=== PATIENT | female | born 1955 | race Caucasian/White ===

== ENCOUNTER 2018-08-30 21:57 | Inpatient (IN) | payer MEDICARE, MEDICAID ==
[~2018-08-30] VITALS: Ht 170.2 cm; Wt 69.9 kg
--- NOTE | 2018-08-30 22:18 | ED Syncope ---
General Chief Complaint: Trauma-Non Activation Stated Complaint: RT HIP PAIN Source of Information: Patient, EMS Exam Limitations: No Limitations History of Present Illness Date Seen by Provider: Aug 30, 2018 Time Seen by Provider: 21:56 Initial Comments Patient presents to ER by EMS from the [facility] where she says she was getting some soda out of the machine and the last thing she remembers until people were standing over her. Apparently according to bystanders she fell backwards striking her head against the machine behind her. She's not having any nausea fevers chills cough shortness of breath or malaise lately. She does not have a history of syncope. No chest pain or abdominal pain. No nausea or vomiting. She is having pain, deformity and outward rotation in her right hip. No history of surgery or fracture to her hip. Allergies and Home Medications Allergies Coded Allergies: erythromycin base (Verified Allergy, Unknown, 08/30/18) hydrocodone (Verified Allergy, Unknown, 08/30/18) Patient Home Medication List Home Medication List Reviewed: Yes Review of Systems Constitutional: No chills, No diaphoresis EENTM: No ear discharge, No hearing loss, No ear pain Respiratory: No cough, No short of breath Cardiovascular: No chest pain, No edema Gastrointestinal: No abdominal pain, No constipation, No diarrhea Genitourinary: No discharge, No dysuria Musculoskeletal: No back pain, No joint pain Skin: No pruritus, No rash Past Gnzdhqe-Msdtyp-Hlbwvy Hx Patient Social History Alcohol Use: Denies Use Recreational Drug Use: No Smoking Status: Current Everyday Smoker Recent Foreign Travel: No Contact w/Someone Who Travel: No Recent Hopitalizations: No Seasonal Allergies Seasonal Allergies: No Past Medical History Surgeries: Yes Hysterectomy Respiratory: No Cardiac: No Neurological: No 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 oz. kg; BMI Method: General Appearance: WD/WN, Moderate Distress HEENT: PERRL/EOMI, TMs Normal, Normal ENT Inspection, Pharynx Normal, Moist Mucous Membranes Neck: Full Range of Motion, Normal Inspection Cardiovascular: Regular Rate, Rhythm, No Edema, Normal Peripheral Pulses Respiratory: Chest Non Tender, Lungs Clear, No Accessory Muscle Use, No Respiratory Distress Gastrointestinal: Normal Bowel Sounds, Non Tender, Soft Extremities: Normal Capillary Refill, No Pedal Edema, Other (right leg externally rotated painful to palpation around the right hip. Good distal pulses and sensation.) Neurologic/Psychiatric: Alert, Oriented x3, No Motor/Sensory Deficits, Normal Mood/Affect, drawing in hand II-XII Norm as Tested Cranial Nerves: Normal Hearing, Normal Speech, PERRL Coordination/Gait: Normal Finger to Nose Motor/Sensory: No Motor Deficit, No Sensory Deficit Skin: Normal Color, Warm/Dry Progress/Results/Core Measures Results/Orders Lab Results Laboratory Tests Test 08/30/18 22:00 08/30/18 22:27 08/30/18 23:40 Range/Units White Blood Count 9.4 4.3-11.0 10^3/uL Red Blood Count 4.18 L 4.35-5.85 10^6/uL Hemoglobin 12.9 11.5-16.0 G/DL Hematocrit 39 35-52 % Mean Corpuscular Volume 92 80-99 FL Mean Corpuscular Hemoglobin 31 25-34 PG Mean Corpuscular Hemoglobin Concent 33 32-36 G/DL Red Cell Distribution Width 13.4 10.0-14.5 % Platelet Count 258 130-400 10^3/uL Mean Platelet Volume 10.4 7.4-10.4 FL Neutrophils (%) (Auto) 35 L 42-75 % Lymphocytes (%) (Auto) 56 H 12-44 % Monocytes (%) (Auto) 8 0-12 % Eosinophils (%) (Auto) 1 0-10 % Basophils (%) (Auto) 0 0-10 % Neutrophils # (Auto) 3.3 1.8-7.8 X 10^3 Lymphocytes # (Auto) 5.2 H 1.0-4.0 X 10^3 Monocytes # (Auto) 0.8 0.0-1.0 X 10^3 Eosinophils # (Auto) 0.1 0.0-0.3 10^3/uL Basophils # (Auto) 0.0 0.0-0.1 10^3/uL Erythrocyte Sedimentation Rate 19 0-30 MM/HR B-Type Natriuretic Peptide 11.8 <100.0 PG/ML Sodium Level 142 135-145 MMOL/L Potassium Level 3.4 L 3.6-5.0 MMOL/L Chloride Level 104 98-107 MMOL/L Carbon Dioxide Level 28 21-32 MMOL/L Anion Gap 10 5-14 MMOL/L Blood Urea Nitrogen 10 7-18 MG/DL Creatinine 0.76 0.60-1.30 MG/DL Estimat Glomerular Filtration Rate > 60 BUN/Creatinine Ratio 13 Glucose Level 115 H 70-105 MG/DL Calcium Level 8.8 8.5-10.1 MG/DL Corrected Calcium 9.0 8.5-10.1 MG/DL Total Bilirubin 0.3 0.1-1.0 MG/DL Aspartate Amino Transf (AST/SGOT) 17 5-34 U/L Alanine Aminotransferase (ALT/SGPT) 10 0-55 U/L Alkaline Phosphatase 68 40-136 U/L Ammonia 19 11-32 UMOL/L Troponin I < 0.028 <0.028 NG/ML C-Reactive Protein High Sensitivity 0.95 H 0.00-0.50 MG/DL Total Protein 6.2 L 6.4-8.2 GM/DL Albumin 3.7 3.2-4.5 GM/DL Serum Alcohol < 10 <10 MG/DL Blood Gas Puncture Site RIGHT RADIAL Blood Gas Patient Temperature 96.0 Arterial Blood pH 7.38 7.37-7.43 Arterial Blood Partial Pressure CO2 48 H 35-45 MMHG Arterial Blood Partial Pressure O2 73 L 79-93 MMHG Arterial Blood HCO3 28 H 23-27 MMOL/L Arterial Blood Total CO2 29.9 21.0-31.0 MMOL/L Arterial Blood Oxygen Saturation 97 94-100 % Arterial Blood Base Excess 3.4 H -2.5-2.5 MMOL/L Jamari Test YES-POS Blood Gas Ventilator Setting NO Blood Gas Inspired Oxygen 3L Micro Results Microbiology 08/30/18 Influenza Types A,B Antigen (MIGNON) - Final, Complete My Orders Orders - PAZ MITTAL Ct Head/Cervical Spine Wo (08/30/18 22:19) Alcohol (08/30/18 22:19) Ammonia (08/30/18 22:19) Arterial Blood Gas (08/30/18 22:19) BNP (08/30/18 22:19) Cbc With Automated Diff (08/30/18 22:19) Comprehensive Metabolic Panel (08/30/18 22:19) Hs C Reactive Protein (08/30/18 22:19) Erythrocyte Sedimentation Rate (08/30/18 22:19) Drug Screen Stat (Urine) (08/30/18 22:19) Troponin I (08/30/18 22:19) Ua Culture If Indicated (08/30/18 22:19) Influenza A And B Antigens (08/30/18 22:19) Chest 1 View, Ap/Pa Only (08/30/18 22:19) Hip, Right, 2 Views (08/30/18 22:19) Saline Lock/Iv-Start (08/30/18 22:19) Ekg Tracing (08/30/18 22:19) Continuous Ekg Monitoring (08/30/18 22:19) Ketorolac Injection (Toradol Injection) (08/30/18 23:15) Arterial Blood Draw (08/30/18 23:40) Catheter(Urinary) Insert & Ass 03,15 (08/31/18 00:05) Lactated Ringers (Lr 1000 Ml Iv Solution (08/31/18 00:45) Medications Given in ED Current Medications Medications Dose Ordered Sig/Kuldeep Route Start Time Stop Time Status Last Admin Dose Admin Ketorolac Tromethamine 30 mg ONCE ONCE IVP 08/30/18 23:15 08/30/18 23:16 DC 08/30/18 23:15 30 MG Vital Signs/I&O 08/30/18 21:58 Temp 96.0 Pulse 94 Resp 19 B/P (MAP) 122/71 (88) O2 Delivery Nasal Cannula O2 Flow Rate 2.00 08/31/18 00:00 Intake Total 200 ml Balance 200 ml Progress Progress Note : Time: 00:[address] of the head and neck unremarkable. Chest unremarkable. Right hip has a fracture at the neck. Toradol for her pain initially. Looking for source of her syncope. EKG labs urinalysis, Suazo catheter. EMS reports that initially her oxygenation was normal but became so they gave her 50 g of fentanyl her oxygen saturation slipped down to 88% and she acted more somnolent. We put her on oxygen. She does admit to having history of COPD. Initial ECG Impression Date: Aug 31, 2018 Initial ECG Impression Time: 22:12 Initial ECG Rate: 80 Initial ECG Rhythm: Normal Sinus Initial ECG Intervals: Normal Initial ECG Impression: Normal Initial ECG Comparisson: No Previous ECG Available Comment No acute ST elevation or depression. No dysrhythmia. Diagnostic Imaging Diagonstic Imaging: Xray Plain Films/CT/US/NM/MRI: chest Comments No acute processes on one view chest x-ray. Reviewed: Reviewed by Me Diagonstic Imaging: Xray Plain Films/CT/US/NM/MRI: hip (right) Comments Right femoral neck fracture with moderate angulation. Closed. Reviewed: Reviewed by Me Diagonstic Imaging: CT (noncontrast) Plain Films/CT/US/NM/MRI: c-spine, head Comments No acute fractures of the cervical spine. No intracranial mass effect, hemorrhage, tumor, midline shift. Reviewed: Reviewed by Me Departure Communication (Admissions) Time/Spoke to Admitting Phy: 00:58 Dr. Roach discussed case lab imaging findings and she agrees to admit the patient. Discussed the single episode and at the urinalysis is still pending. Time/Spoke to Consulting Phy: 00:58 [place]: Discussed case lab imaging findings and he agrees to do surgery second on in the morning. Impression Primary Impression: Syncopal episodes Qualified Codes: R55 - Syncope and collapse Additional Impression: Closed right hip fracture Qualified Codes: S72.001A - Fracture of unspecified part of neck of right femur, initial encounter for closed fracture Disposition: ADMITTED INPATIENT Condition: Stable Admissions Decision to Admit Reason: Admit from ER (General) Decision to Admit/Date: Aug 31, 2018 Time/Decision to Admit Time: 00:52 Departure-Patient Inst. Referrals: NO,LOCAL PHYSICIAN (PCP) Primary Care Physician PAZ MITTAL Aug 30, 2018 22:18
[2018-08-30 22:28] LABS: BASOPHILS % (AUTO) 0 % (0-10); EOSINOPHILS # (AUTO) 0.1 10^3/uL (0.0-0.3); EOSINOPHILS % (AUTO) 1 % (0-10); HEMATOCRIT 39 % (35-52); HEMOGLOBIN 12.9 G/DL (11.5-16.0); LYMPHOCYTES # (AUTO) 5.2 X 10^3 (1.0-4.0); LYMPHOCYTES % (AUTO) 56 % (12-44); MEAN CORPUSCULAR HEMOGLOBIN 31 PG (25-34); MEAN CORPUSCULAR HGB CONC 33 G/DL (32-36); MEAN CORPUSCULAR VOLUME 92 FL (80-99); MEAN PLATELET VOLUME 10.4 FL (7.4-10.4); MONOCYTES # (AUTO) 0.8 X 10^3 (0.0-1.0); MONOCYTES % (AUTO) 8 % (0-12); NEUTROPHILS # (AUTO) 3.3 X 10^3 (1.8-7.8); NEUTROPHILS % (AUTO) 35 % (42-75); PLATELET COUNT 258 10^3/uL (130-400); RED CELL DISTRIBUTION WIDTH 13.4 % (10.0-14.5); WHITE BLOOD COUNT 9.4 10^3/uL (4.3-11.0)
[2018-08-30 22:51] LABS: ERYTHROCYTE SEDIMENTATION RATE 19 MM/HR (0-30)
[2018-08-30 22:57] LABS: ALANINE AMINOTRANSFERASE 10 U/L (0-55); ALBUMIN 3.7 GM/DL (3.2-4.5); ALKALINE PHOSPHATASE 68 U/L (40-136); AMMONIA 19 UMOL/L (11-32); BILIRUBIN,TOTAL 0.3 MG/DL (0.1-1.0); BUN/CREATININE RATIO 13; CALCIUM 8.8 MG/DL (8.5-10.1); CARBON DIOXIDE 28 MMOL/L (21-32); CHLORIDE 104 MMOL/L (98-107); CREATININE SERUM 0.76 MG/DL (0.60-1.30); GFR ESTIMATED > 60; GLUCOSE 115 MG/DL (70-105); POTASSIUM 3.4 MMOL/L (3.6-5.0); SODIUM 142 MMOL/L (135-145); TOTAL PROTEIN 6.2 GM/DL (6.4-8.2)
[2018-08-30] MEDS ORDERED: KETOROLAC 30 MG/ML VIAL IVP ONE (23:15)
[2018-08-30 23:56] LABS: ABG BASE EXCESS 3.4 MMOL/L (-2.5-2.5); ABG OXYGEN SATURATION 97 % (94-100); ABG PCO2 48 MMHG (35-45); ABG PH 7.38 (7.37-7.43); ABG PO2 73 MMHG (79-93); ABG TCO2 29.9 MMOL/L (21.0-31.0)
[2018-08-30 23:58] LABS: ALLENS TEST YES-POS; INSPIRED O2 3L; VENTILATOR NO
[2018-08-31] VITALS (7 sets, daily range): BP systolic 109–190; BP diastolic 53–86
[2018-08-31] MEDS: LACTATED RINGERS 1,000 ML IV SCH ×3 (01:00→13:30)
[2018-08-31] MEDS ORDERED: fentaNYL INJECTION 100 MCG/2 ML AMP ONE ×3 (01:01→11:43)
[2018-08-31] MEDS ORDERED: fentaNYL INJECTION 100 MCG/2 ML AMP IVP ONE (01:15)
[2018-08-31 01:36] LABS: BILIRUBIN,URINE NEGATIVE (NEGATIVE); CLARITY,URINE SLIGHTLY CLOUDY; COLOR,URINE YELLOW; GLUCOSE, URINE (UA) NEGATIVE (NEGATIVE); KETONES,URINE 1+ (NEGATIVE); LEUKOCYTE ESTERASE ,URINE NEGATIVE (NEGATIVE); NITRITE,URINE NEGATIVE (NEGATIVE); PH,URINE 8 (5-9); PROTEIN,URINE 1+ (NEGATIVE); UROBILINOGEN,URINE NORMAL (NORMAL)
[2018-08-31 01:43] LABS: BACTERIA,URINE TRACE /HPF
[2018-08-31 01:52] LABS: AMPHETAMINE SCREEN, URINE NEGATIVE (NEGATIVE); BARBITURATE SCREEN URINE NEGATIVE (NEGATIVE); BENZODIAZEPINES SCREEN URINE POSITIVE (NEGATIVE); CANNABINOID SCREEN, URINE NEGATIVE (NEGATIVE); COCAINE SCREEN URINE NEGATIVE (NEGATIVE); METHADONE STAT NEGATIVE (NEGATIVE); METHAMPHETAMINE SCREEN URINE S NEGATIVE (NEGATIVE); OPIATE SCREEN URINE NEGATIVE (NEGATIVE); OXYCODONE STAT NEGATIVE (NEGATIVE); PROPOXYPHENE STAT NEGATIVE (NEGATIVE); TRICYCLIC ANTIDEPRESSANTS SCRE NEGATIVE (NEGATIVE)
[2018-08-31] MEDS ORDERED: NS W/KCL 20 MEQ/L 1,000 ML IV SCH (05:30)
[2018-08-31] MEDS ORDERED: ONDANSETRON 4 MG/2 ML (SDV) Z0FRAN IV PRN ×2 (05:30→11:15)
[2018-08-31] MEDS ORDERED: fentaNYL INJECTION 100 MCG/2 ML AMP IV PRN (05:30)
[2018-08-31] MEDS: fentaNYL INJECTION 100 MCG/2 ML AMP IV PRN ×2 (05:56→08:40)
[2018-08-31] MEDS ORDERED: RT-ALBUTEROL/IPRATROPIUM 3 ML (DUONEB) VIAL INH PRN (06:00)
--- NOTE | 2018-08-31 06:35 | Diagnostic Imaging Report ---
INDICATION: Fall hip injury COMPARISON: None. FINDINGS: 2 views of the chest demonstrates likely benign granuloma in the left midlung. Right lung is clear. There is no pneumothorax or effusion. Heart is normal. Visualized osseous structures normal. IMPRESSION: Suspect benign granuloma left lung base. Consider CT chest for further evaluation. Otherwise, no acute cardiopulmonary findings. Dictated by: Dictated on workstation # [id number]
--- NOTE | 2018-08-31 06:36 | Diagnostic Imaging Report ---
INDICATION: Fall hip injury COMPARISON: None. FINDINGS: 2 views right hip demonstrate angulated slightly displaced right femoral neck fracture. There is no dislocation. The visualized pelvis is intact. IMPRESSION: Right femoral neck fracture. Dictated by: Dictated on workstation # [id number]
--- NOTE | 2018-08-31 06:44 | Diagnostic Imaging Report ---
PROCEDURE: CT head and CT cervical spine without contrast. TECHNIQUE: Multiple contiguous axial images were obtained through the brain and cervical spine without the use of intravenous contrast. Sagittal and coronal reformations through the cervical spine were then performed. INDICATION: Fall head and neck pain. COMPARISON: None. FINDINGS: CT HEAD: Ventricles normal in size, shape and position. There is no midline shift or mass effect. There is no hemorrhage or evidence of acute ischemia. No intra-axial fluid collection is seen. Paranasal sinuses and mastoids are clear. Bony calvarium normal. IMPRESSION: No acute intracranial abnormalities. CT CERVICAL SPINE: Alignment is normal. There was no subluxation or fracture. Mild degenerative changes are present throughout. There is no osseous lesion. There are carotid calcifications bilaterally. IMPRESSION: No traumatic malalignment or fracture. Agree with the preliminary report. Dictated by: Dictated on workstation # [id number]
[2018-08-31 06:46] LABS: BASOPHILS % (AUTO) 0 % (0-10); EOSINOPHILS % (AUTO) 1 % (0-10); HEMATOCRIT 39 % (35-52); HEMOGLOBIN 12.7 G/DL (11.5-16.0); LYMPHOCYTES # (AUTO) 2.6 X 10^3 (1.0-4.0); LYMPHOCYTES % (AUTO) 31 % (12-44); MEAN CORPUSCULAR HEMOGLOBIN 31 PG (25-34); MEAN CORPUSCULAR HGB CONC 33 G/DL (32-36); MEAN CORPUSCULAR VOLUME 93 FL (80-99); MEAN PLATELET VOLUME 10.2 FL (7.4-10.4); MONOCYTES # (AUTO) 0.7 X 10^3 (0.0-1.0); MONOCYTES % (AUTO) 8 % (0-12); NEUTROPHILS % (AUTO) 60 % (42-75); PLATELET COUNT 237 10^3/uL (130-400); RED CELL DISTRIBUTION WIDTH 13.4 % (10.0-14.5); WHITE BLOOD COUNT 8.3 10^3/uL (4.3-11.0)
[2018-08-31 07:13] LABS: BUN/CREATININE RATIO 19; CALCIUM 9.4 MG/DL (8.5-10.1); CARBON DIOXIDE 26 MMOL/L (21-32); CHLORIDE 106 MMOL/L (98-107); GFR ESTIMATED > 60; GLUCOSE 107 MG/DL (70-105); POTASSIUM 3.8 MMOL/L (3.6-5.0); SODIUM 141 MMOL/L (135-145)
[2018-08-31] MEDS: RT-ALBUTEROL/IPRATROPIUM 3 ML (DUONEB) VIAL INH SCH ×3 (08:18→19:34)
--- NOTE | 2018-08-31 08:20 | Consultation ---
History of Present Illness History of Present Illness Patient Consulted On(peace/time) 08/31/18 08:15 Date Seen by Provider: Aug 31, 2018 Time Seen by Provider: 08:01 Reason for Visit: Fall, hip pain History of Present Illness 62 y/o [place], falling on right hip. Denies any other pain or complaints. Past history related. Awake, alert, daughters present this am for some of history. Allergies and Home Medications Allergies Coded Allergies: erythromycin base (Verified Allergy, Unknown, 08/30/18) hydrocodone (Verified Allergy, Unknown, 08/30/18) Patient Home Medication List Home Medication List Reviewed: No Past Gfyupwo-Wnhhrd-Saqfjd Hx Patient Social History Alcohol Use: Denies Use Recreational Drug Use: No Smoking Status: Current Everyday Smoker Recent Foreign Travel: No Contact w/Someone Who Travel: No Recent Infectious Disease Expo: No Recent Hopitalizations: No Immunizations Up To Date Date of Pneumonia Vaccine: Apr 07, 2018 Date of Influenza Vaccine: Apr 07, 2018 Seasonal Allergies Seasonal Allergies: Yes Past Medical History Surgeries: Yes Hysterectomy Respiratory: No COPD Currently Using CPAP: No Currently Using BIPAP: No Neurological: No Female Reproductive Disorders: Ovarian Cyst 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 Gastrointestinal: Yes Gastroesophageal Reflux Musculoskeletal: No Arthritis, Scoliosis Endocrine: Yes Hypothyroidsim HEENT: No Cancer: No Psychosocial: Yes Sleep Difficulties, Anxiety Integumentary: No Blood Disorders: No Adverse Reaction/Blood Tranf: No Review of Systems-General Constitutional: weakness EENTM: see HPI Respiratory: wheezing, other (history of COPD) Cardiovascular: no symptoms reported Gastrointestinal: no symptoms reported Genitourinary: no symptoms reported Musculoskeletal: joint pain Skin: no symptoms reported Psychiatric/Neurological: No Symptoms Reported Physical Exam-General Problems Physical Exam Vital Signs Vital Signs - First Documented 08/30/18 08/31/18 08/31/18 21:58 01:50 04:27 Temp 96.0 Pulse 94 Resp 19 B/P (MAP) 122/71 (88) Pulse Ox 92 O2 Delivery Nasal Cannula O2 Flow Rate 2.00 FiO2 28 Capillary Refill : Less Than 3 SecondsLess Than 3 Seconds General Appearance: no apparent distress Eyes: Bilateral Eye Normal Inspection HEENT: PERRL/EOMI, normal ENT inspection Neck: non-tender, full range of motion, supple, normal inspection Respiratory: chest non-tender, no respiratory distress, no accessory muscle use Cardiovascular: normal peripheral pulses, regular rate, rhythm Gastrointestinal: non tender, soft Rectal: deferred Back: no vertebral tenderness Extremities: other (right leg, shortened and externally rotated. Pain with ROM. Bilateral upper extremities and left lower show no pain, swelling or deformity.) Neurologic/Psychiatric: brewmaster II-XII nml as tested, no motor/sensory deficits, alert, normal mood/affect, oriented x 3 Skin: normal color, warm/dry Lymphatic: no adenopathy Comments Displaced right femoral neck fracture. CT neck, shows DDD, no fx Assessment/Plan Assessment/Plan Admission Diagnosis/Plan Right closed, displaced femoral neck fracture. Plan: Needs right hip william-arthroplasty. Risk, benefits, alternatives discussed with family/patient. Admission Status: Inpatient Order (span 2 midnights) Reason for Inpatient Admission: Femoral neck fracture Clinical Quality Measures DVT/VTE Risk/Contraindication: Risk Factor Score Per Nursin RFS Level Per Nursing on Admit: 4+=Very High HARPREET FORREST MD Aug 31, 2018 08:20
[2018-08-31] MEDS ORDERED: ALPRAZolam 0.5 MG (XANAX) TAB PO PRN (09:15)
--- NOTE | 2018-08-31 09:24 | History & Physical-Hospitalist ---
History of Present Illness HPI/Chief Complaint This is a 62-year-old white female who was at the [facility] last evening with her . He had had a sonic burger earlier in the evening but then thinks perhaps her blood sugar dropped low. She got up to go get some drinks and then passed out falling on her right hip. She has sustained a right femoral neck fracture. Source: patient, family Exam Limitations: no limitations Date Seen 08/31/18 Time Seen by a Provider: 09:00 Attending Physician Shona Sorenson MD PCP No,Local Physician Referring Physician Date of Admission Aug 31, 2018 at 01:00 Home Medications & Allergies Home Medications Reviewed patient Home Medication Reconciliation performed by pharmacy medication reconciliations animal health technician and/or nursing. Patients Allergies have been reviewed. Allergies Allergies Coded Allergies erythromycin base (Verified Allergy, Unknown, 08/30/18) hydrocodone (Verified Allergy, Unknown, 08/30/18) Past Szcblhm-Jflxjx-Ynoshl Hx Past Med/Social Hx: Reviewed Nursing Past Med/Soc Hx Patient Social History Marrital Status: Employed/Student: retired Alcohol Use: Denies Use Recreational Drug Use: No Smoking Status: Current Everyday Smoker Physical Abuse Screen: No Sexual Abuse: No Recent Foreign Travel: No Contact w/other who traveled: No Recent Hopitalizations: No Recent Infectious Disease Expo: No Immunizations Up To Date Date of Pneumonia Vaccine: Apr 07, 2018 Date of Influenza Vaccine: Apr 07, 2018 Seasonal Allergies Seasonal Allergies: Yes Past Medical History Surgeries: Hysterectomy (Secondary to sepsis), Tonsillectomy Recent upper respiratory tract infection just getting off antibiotics Currently Using CPAP: No Currently Using BIPAP: No : No Female Reproductive Disorders: Ovarian Cyst Hysterectomy Gastrointestinal: Gastroesophageal Reflux Musculoskeletal: Arthritis, Scoliosis Endocrine: Hypothyroidsim Psychosocial: Sleep Difficulties, Anxiety History of Blood Disorders: No Adverse Reaction to Blood Ibrahim: No Review of Systems Constitutional: see HPI EENTM: other (E dentulous) Respiratory: cough Cardiovascular: no symptoms reported Gastrointestinal: no symptoms reported Genitourinary: no symptoms reported Musculoskeletal: joint pain (Right hip) Skin: no symptoms reported Psychiatric/Neurological: Other (And somnolent) Physical Exam Physical Exam Vital Signs Vital Signs - First Documented 08/30/18 08/31/18 08/31/18 21:58 01:50 04:27 Temp 96.0 Pulse 94 Resp 19 B/P (MAP) 122/71 (88) Pulse Ox 92 O2 Delivery Nasal Cannula O2 Flow Rate 2.00 FiO2 28 Capillary Refill : Less Than 3 SecondsLess Than 3 Seconds Height, Weight, BMI Height: 5'7.00" Weight: 154lbs. 2.0oz. 69.513291is; 24.1 BMI Method:Stated General Appearance: No Apparent Distress, WD/WN HEENT: PERRL/EOMI, Other (Edentulous) Neck: Full Range of Motion, Non Tender, Supple Respiratory: No Accessory Muscle Use, Rales, Wheezing Cardiovascular: Regular Rate, Rhythm, No Gallop, No Murmur Gastrointestinal: Normal Bowel Sounds, Non Tender, Soft Extremity: Other (Right leg shortened and externally rotated with good pulses) Neurologic/Psychiatric: Alert, Oriented x3, Normal Mood/Affect Results Results/Procedures Labs Laboratory Tests 08/30/18 22:00 08/30/18 22:27 08/31/18 06:05 Patient resulted labs reviewed. Imaging: Reviewed Imaging Report Assessment/Plan Admission Diagnosis Right femoral neck fracture Hypothyroidism Tobaccoism with probable COPD Syncope we will place on telemetry possibly hypoglycemia granuloma left lung base possibly warranting a follow-up as an outpatient Insomnia takes an exit bedtime to help her sleep Admission Status: Inpatient Order (span 2 midnights) Reason for Inpatient Admission: For surgery and respiratory treatments Diagnosis/Problems Diagnosis/Problems (1) Closed right hip fracture Status: Acute Qualifiers: Encounter type: initial encounter Qualified Codes: S72.001A - Fracture of unspecified part of neck of right femur, initial encounter for closed fracture (2) Syncopal episodes Status: Acute Qualifiers: Syncope type: unspecified Qualified Codes: R55 - Syncope and collapse (3) Hypothyroid Status: Chronic (4) Insomnia Status: Chronic (5) Bronchitis due to tobacco use Status: Acute Clinical Quality Measures DVT/VTE Risk/Contraindication: Risk Factor Score Per Nursin RFS Level Per Nursing on Admit: 4+=Very High SHONA SORENSON MD Aug 31, 2018 09:24
[2018-08-31] MEDS ORDERED: ROCURONIUM 10 MG/ML 5 ML SYRINGE IV ONE (10:29)
[2018-08-31] MEDS ORDERED: proPOfol 200 MG/20 ML (DIPRIVAN) VIAL IV ONE (10:29)
[2018-08-31] MEDS ORDERED: LIDOCAINE PF 2% 5 ML (XYLOCAINE) VIAL ONE (10:29)
[2018-08-31] MEDS ORDERED: ONDANSETRON 4 MG/2 ML (SDV) Z0FRAN ONE (10:29)
[2018-08-31] MEDS ORDERED: MIDAZOLAM 2 MG/2 ML (VERSED) VIAL ONE (10:29)
--- NOTE | 2018-08-31 10:30 | NUR ---
TAKEN DOWN FOR SURGERY BY PREOP
[2018-08-31] MEDS ORDERED: SEVOFLURANE (ULTANE) 15 ML INHAL SOLN ONE ×6 (10:31→12:10)
[2018-08-31] MEDS ORDERED: oxyCODONE/APAP 5/325MG (PERCOCET 5) TABLET PO PRN (11:15)
[2018-08-31] MEDS ORDERED: MILK OF MAGNESIA 400 MG/5 ML 30 ML UDC PO PRN (11:15)
[2018-08-31] MEDS ORDERED: BISACODYL 5 MG (DULCOLAX) TABLET PO PRN (11:15)
[2018-08-31] MEDS ORDERED: ceFAZolin INJECTION 2,000 MG ONE (11:15)
--- NOTE | 2018-08-31 12:29 | Progress Note-Post Operative ---
Post-Operative Progess Note Surgeon (s)/Coffee Shop Attendant (s) Surgeon HARPREET FORREST MD Coffee Shop Attendant: FRANSISCO Pate Pre-Operative Diagnosis Right closed femoral neck fracture Post-Operative Diagnosis same Procedure & Operative Findings Date of Procedure 08/31/18 Procedure Performed/Findings Right Hip Rajat-arthroplasty Anesthesia Type GETA Estimated Blood Loss Estimated blood loss (mL): 150 Specimens/Packing Specimens Removed femoral head HARPREET FORREST MD Aug 31, 2018 12:29
[2018-08-31] MEDS: morphine INJ 4 MG/ML 1 ML (VIAL/SYRINGE) IV PRN ×2 (12:43→12:56)
[2018-08-31] MEDS ORDERED: HYDROmorphone 2 MG/ML VIAL (DILAUDID) ONE (12:46)
[2018-08-31] MEDS ORDERED: morphine INJ 10 MG/ML 1ML (SYR OR VIAL) IVP ONE (13:00)
[2018-08-31] MEDS ORDERED: MEPERIDINE (DEMEROL) INJ 50 MG/ML IVP ONE (13:00)
[2018-08-31] MEDS ORDERED: ONDANSETRON 4 MG/2 ML (SDV) Z0FRAN IVP PRN (13:00)
[2018-08-31] MEDS ORDERED: PROMETHAZINE INJ 25 MG/ML (PHENERGAN) AMP IVP ONE (13:00)
[2018-08-31] MEDS ORDERED: HYDROmorphone 2 MG/ML VIAL (DILAUDID) IV ONE (13:00)
--- NOTE | 2018-08-31 13:40 | NUR ---
BACK TO FLOOR PER BED WITH AREA CLEANER -- REPOR GIVEN TO THIS RN -- NOTE THAT R FEET PULSE IS MARKED
--- NOTE | 2018-08-31 13:53 | Diagnostic Imaging Report ---
EXAMINATION: Right hip at 12:57 PM. INDICATION: Postop right hip hemiarthroplasty. FINDINGS: Two views of right hip were obtained. In the interval since the prior exam of 08/30/2018, the patient has undergone a surgical procedure. There is now a total hip prosthesis in place. The prosthetic components seem to be in good position. There is no fracture or acute abnormality identified. There is gas in soft tissues about the hip joint and there are skin bryce lateral to the hip joint. IMPRESSION: Stable postoperative right hip. Dictated by: Dictated on workstation # [id number]
[2018-08-31] MEDS ORDERED: ceFAZolin 2 GM IV Premixed 50 ML IV SCH ×2 (14:00→19:00)
[2018-08-31] MEDS ORDERED: morphine INJ 10 MG/ML 1ML (SYR OR VIAL) ONE (14:06)
--- NOTE | 2018-08-31 14:14 | OPERATIVE REPORT ---
DATE OF SERVICE: PREOPERATIVE DIAGNOSIS: Right closed displaced femoral neck fracture. POSTOPERATIVE DIAGNOSIS: Right closed displaced femoral neck fracture. PROCEDURE PERFORMED: Right hip hemiarthroplasty for fracture. DATE AND TIME OF SURGERY: Please see anesthesia record. IMPLANTS USED: Synthes, DePuy, Tri-Lock size 5 stem, +5 neck length, 28 mm femoral head with a 44 mm bipolar cup. SURGEON: Harpreet Phan MD MECHANICAL DESIGN ENGINEER FACILITIES: Too BRAVO. ROLE OF GOODWILL AMBASSADOR: Aid in retraction of the procedure, aid in implantation of instrumentation and wound closure. ANESTHESIA: General endotracheal. ESTIMATED BLOOD LOSS: 150 mL. INTRAVENOUS FLUIDS: Please see anesthesia record. ANTIBIOTICS: Ancef. COMPLICATIONS: None. INDICATIONS FOR PROCEDURE: The patient is a 62-year-old female, slipped and fell last evening, sustaining a hip fracture. Denies other injuries. After discussion with family, they elected to proceed with operative treatment. DESCRIPTION OF PROCEDURE: The patient was taken to the preoperative holding area, brought back to the operative suite. After adequate induction of general anesthesia, preoperative antibiotics, carefully placed in lateral decubitus position, right side up. Standard anterolateral Weiner-Basurto approach to the hip was carried out without difficulty. Once the femoral neck was delivered from the wound, it was cut shorter utilizing the femoral neck cutting guide. Once it was cut smoothed, a corkscrew was utilized to deliver the femoral head which was measured, measured to be 44. Trial sizers were utilized with great fit achieved with a 44. The femur was then broached. Size 5 stem was the most appropriate fit. It was trialled again and reduced with a great fit achieved, stability and motion of the hip. Therefore, an actual size 5 stem was impacted in position after copious pulse lavage irrigation of the wound and the canal. Once the stem was then placed and impacted in position with good fit, the bipolar head was placed onto the Zarate taper impacted in position and then the head was reduced into the acetabulum. Again, stability and range of motion were assessed and noted to be satisfactory. The wound was closed in multiple layers after again pulse lavage irrigation. Once the wound was closed, the patient was transferred to recovery room in stable condition, tolerated procedure well. Job ID: [id number] DocumentID: [id number] Dictated Date: 08/31/2018 12:28:02 Flag Maker Date: 08/31/2018 14:14:14 Dictated By: HARPREET PHAN MD [facility]
[2018-08-31] MEDS: NS IV 1000 ML 1,000 ML IV SCH ×2 (15:48→23:40)
[2018-08-31] MEDS: SENNOSIDES 8.6 MG (SENOKOT) TAB PO SCH (20:48)
[2018-08-31] MEDS: DOCUSATE SODIUM 100 MG (COLACE) CAP PO SCH (20:48)
[2018-09-01] MEDS: RT-ALBUTEROL/IPRATROPIUM 3 ML (DUONEB) VIAL INH SCH ×4 (02:46→19:07)
[2018-09-01] MEDS: NS IV 1000 ML 1,000 ML IV SCH (03:14)
[2018-09-01] MEDS: oxyCODONE/APAP 7.5-325 MG (PERCOCET 7.5) TABLET PO PRN ×4 (03:14→20:23)
[2018-09-01 03:30] VITALS: BP 107/65
[2018-09-01] MEDS: LEVOTHYROXINE 100 MCG (LEVOTHROID) TAB PO SCH (05:58)
[2018-09-01 06:03] LABS: BASOPHILS % (AUTO) 0 % (0-10); EOSINOPHILS % (AUTO) 0 % (0-10); HEMATOCRIT 30 % (35-52); HEMOGLOBIN 9.7 G/DL (11.5-16.0); LYMPHOCYTES # (AUTO) 1.2 X 10^3 (1.0-4.0); LYMPHOCYTES % (AUTO) 13 % (12-44); MEAN CORPUSCULAR HEMOGLOBIN 30 PG (25-34); MEAN CORPUSCULAR HGB CONC 32 G/DL (32-36); MEAN CORPUSCULAR VOLUME 94 FL (80-99); MONOCYTES % (AUTO) 11 % (0-12); NEUTROPHILS # (AUTO) 7.2 X 10^3 (1.8-7.8); NEUTROPHILS % (AUTO) 77 % (42-75); PLATELET COUNT 211 10^3/uL (130-400); RED CELL DISTRIBUTION WIDTH 13.6 % (10.0-14.5); WHITE BLOOD COUNT 9.4 10^3/uL (4.3-11.0)
[2018-09-01 06:31] LABS: ALANINE AMINOTRANSFERASE 10 U/L (0-55); ALBUMIN 3.3 GM/DL (3.2-4.5); ALKALINE PHOSPHATASE 62 U/L (40-136); BILIRUBIN,TOTAL 0.5 MG/DL (0.1-1.0); BUN/CREATININE RATIO 15; CALCIUM 8.4 MG/DL (8.5-10.1); CARBON DIOXIDE 26 MMOL/L (21-32); CHLORIDE 105 MMOL/L (98-107); GFR ESTIMATED > 60; GLUCOSE 139 MG/DL (70-105); POTASSIUM 3.9 MMOL/L (3.6-5.0); SODIUM 139 MMOL/L (135-145); TOTAL PROTEIN 5.6 GM/DL (6.4-8.2)
--- NOTE | 2018-09-01 07:02 | Progress Note (SOAP) ---
Subjective Date Seen by a Provider: Sep 01, 2018 Time Seen by a Provider: 06:42 Subjective/Events-last exam Pain ok, awake, alert. No concerns. Objective Exam Vital Signs Date Time Temp Pulse Resp B/P (MAP) Pulse Ox O2 Delivery O2 Flow Rate FiO2 09/01/18 03:30 98.2 103 18 107/65 (79) 94 Room Air 2.00 09/01/18 02:46 89 Nasal Cannula 2.00 09/01/18 01:00 83 08/31/18 23:48 100.1 96 16 109/53 (71) 96 Nasal Cannula 2.00 08/31/18 20:00 Nasal Cannula 2.00 08/31/18 19:34 97 Nasal Cannula 3.00 08/31/18 19:30 98.7 89 18 115/58 (77) 97 Nasal Cannula 2.00 08/31/18 19:00 80 08/31/18 15:57 80 08/31/18 15:30 98.0 73 16 110/55 (73) 96 Nasal Cannula 2.00 08/31/18 13:51 Nasal Cannula 3.00 08/31/18 08:20 Nasal Cannula 2.00 08/31/18 08:00 95 Nasal Cannula 2.00 08/31/18 08:00 100.0 104 18 150/70 (96) 95 Nasal Cannula 2.00 I & O 09/01/18 07:00 Intake Total 1970 ml Output Total 1750 ml Balance 220 ml Capillary Refill : Less Than 3 SecondsLess Than 3 Seconds General Appearance: No Apparent Distress Respiratory: No Accessory Muscle Use, No Respiratory Distress Cardiovascular: Regular Rate, Rhythm Gastrointestinal: non tender, soft Extremity: No Calf Tenderness, Swelling Neurologic/Psychiatric: Alert, Oriented x3, No Motor/Sensory Deficits Other comments Post Op Xrays of hip, look quite satisfactory. Results Lab Laboratory Tests 08/31/18 16:32: Glucometer 156H 09/01/18 05:38: Glucometer 151H 09/01/18 05:44: White Blood Count 9.4, Red Blood Count 3.19L, Hemoglobin 9.7#L, Hematocrit 30L, Mean Corpuscular Volume 94, Mean Corpuscular Hemoglobin 30, Mean Corpuscular Hemoglobin Concent 32, Red Cell Distribution Width 13.6, Platelet Count 211, Mean Platelet Volume 10.0, Neutrophils (%) (Auto) 77H, Lymphocytes (%) (Auto) 13 , Monocytes (%) (Auto) 11, Eosinophils (%) (Auto) 0, Basophils (%) (Auto) 0, Neutrophils # (Auto) 7.2, Lymphocytes # (Auto) 1.2, Monocytes # (Auto) 1.0, Eosinophils # (Auto) 0.0, Basophils # (Auto) 0.0, Sodium Level 139, Potassium Level 3.9, Chloride Level 105, Carbon Dioxide Level 26, Anion Gap 8, Blood Urea Nitrogen 9, Creatinine 0.60, Estimat Glomerular Filtration Rate > 60, BUN/ Creatinine Ratio 15, Glucose Level 139H, Calcium Level 8.4L, Corrected Calcium 9.0, Total Bilirubin 0.5, Aspartate Amino Transf (AST/SGOT) 17, Alanine Aminotransferase (ALT/SGPT) 10, Alkaline Phosphatase 62, Total Protein 5.6L, Albumin 3.3, Thyroid Stimulating Hormone (TSH) 0.05L Microbiology 08/30/18 Influenza Types A,B Antigen (MIGNON) - Final, Complete Assessment/Plan Assessment/Plan Assess & Plan/Chief Complaint Right closed, displaced femoral neck fracture. S/P Right Hip Rajat-Arthroplasty Plan: PT, Pain control, work on arrangement to get closer to [place]. Dr Primo Loomis DO has accepted to follow her up as her in [facility] ortho surgeon. Clinical Quality Measures DVT/VTE Risk/Contraindication: Risk Factor Score Per Nursin RFS Level Per Nursing on Admit: 4+=Very High HARPREET FORREST MD Sep 01, 2018 07:02
--- NOTE | 2018-09-01 07:14 | Diagnostic Imaging Report ---
CLINICAL INDICATION: Patient with bilateral rhonchi. EXAM: Portable chest x-ray upright view. COMPARISONS: Chest x-ray dated 08/30/2018. FINDINGS: Lungs/pleura: Stable calcified granuloma overlying the periphery of the left midlung field. There is interval development of mild discoid atelectasis involving the left lung base. Otherwise, lungs are clear. There is no pneumothorax. There is no pleural effusion. Mediastinum: Unremarkable. Pulmonary vasculature: Unremarkable. Heart: Unremarkable. Bones/extrathoracic soft tissue: Unremarkable. IMPRESSION: 1: Interval development of mild left lung base atelectasis. 2: The remainder of this exam shows no significant interval change compared to the prior study of comparison. Dictated by: Dictated on workstation # [id number]
[2018-09-01 08:00] VITALS: BP 112/71
[2018-09-01] MEDS: DOCUSATE SODIUM 100 MG (COLACE) CAP PO SCH ×2 (09:03→20:23)
[2018-09-01] MEDS: SENNOSIDES 8.6 MG (SENOKOT) TAB PO SCH ×2 (09:04→20:21)
[2018-09-01] MEDS: NICOTINE 7 MG (NICODERM) PATCH TD SCH (09:05)
[2018-09-01] MEDS ORDERED: LEVO100T7 PO (09:21)
[2018-09-01] MEDS ORDERED: OMEP40CA36 PO (09:21)
[2018-09-01] MEDS ORDERED: ALPR0.25 PO (09:21)
[2018-09-01] MEDS ORDERED: ASPI-983 PO (09:21)
--- NOTE | 2018-09-01 09:22 | NUR ---
SPOKE WITH THE PATIENT ABOUT HER MEDICATIONS. SHE LISTED WHAT SHE IS TAKING AND I HAD A LIST FAXED OVER FROM [facility]. [facility] FILLED: 08-26-18 LEVAQUIN 500NG DAILY X 5 DAYS (FINISHED) 08-26-18 MEDROL DOSEPAK #21 (STATES SHE DID NOT TAKE DUE TO AFFECTING HER BLOOD SUGAR) 08-11-18 ALPRAZOLAM 0.25MG BID #60 (ONLY TAKES 1 AT HS) 08-11-18 LEVOTHYROXINE 100MCG DAILY #30 08-22-18 OMEPRAZOLE 40MG DAILY #30 (ONLY TAKES PRN) SHE TAKES ASPIRIN 81MG OTC AT HS. SHE ALSO STATES DRWilfredo WAS GOING TO CALL IN 2 INHALERS FOR HER BECAUSE SHE USES HER HUSBANDS RIGHT NOW. [facility] HAS NOT GOTTEN ORDERS FOR INHALERS YET, THE PATIENT WAS UNSURE OF THE NAMES OF THE INHALERS SO I DID NOT INCLUDE THEM ON THE MED REC AT THIS TIME.
--- NOTE | 2018-09-01 10:26 | Physical Therapy Evaluation ---
PT Evaluation-General Medical Diagnosis Admission Date Aug 31, 2018 at 01:00 Medical Diagnosis: right hip fracture Onset Date: Aug 31, 2018 Therapy Diagnosis Therapy Diagnosis: debility/weakness Height/Weight Height (Feet): 5 Height (Inches): 7.00 Weight (Pounds): 154 Weight (Ounces): 2.0 Precautions Precautions/Isolations: Fall Prevention, Standard Precautions Weight Bear Status Right Lower Extremity: Right Full Weight Bearing Left Lower Extremity: Left Full Weight Bearing Referral Physician: Srinivas Reason for Referral: Evaluation/Treatment Medical History Pertinent Medical History: GERD, Hypothroidism, Smoking Current History EMS secondary to fall at [facility] Reviewed History: Yes Social History Home: Single Level Current Living Status: Spouse Prior/Core FIM Prior Level of Function Therapy Code Descriptions/Definitions Functional [place] Measure: 0=Not Assessed/NA 4=Minimal Assistance 1=Total Assistance 5=Supervision or Setup 2=Maximal Assistance 6=Modified [place] 3=Moderate Assistance 7=Complete [place] Therapy Quality Codes: 6 Independent with activity with or without an assistive device 5 Patient requires set up or clean up by helper. Patient completes activity by themselves 4 Supervision or touching assist (CGA). [place] provide cues , steadying assist 3 The helper provides less than half the effort to complete the activity 2 The helper provides more than half the effort to complete the activity 1 Dependent. The helper does all the effort to complete an activity 7 Patient refused to complete or attempt activity 9 The patient did not perform the activity before the current illness or injury 88 Not attempted due to Medical conditions or safety concerns Functional Abilities and Goals: Independent: Patient completed the activities by him/herself, with or without an assistive device, with no assistance from a helper. Needed Some Help: Patient needed partial assistance from another person to complete activities. Dependent: A helper completed the activities for the patient. Unknown: Not Applicable: Bed Mobility: 7 Transfers (B,C,W/C) (FIM): 7 Gait: 7 Stairs: 7 Indoor Mobility (Ambulation): Independent Stairs: Independent Prior Devices Use: None PT Evaluation-Current Subjective Patient is very agreeable to participate with PT. Pain Numeric Pain Scale: 7 Location: Right Location Body Site: Hip Pain Description: Acute Objective Patient Orientation: Normal For Age Problem Solving: Good Attachments: Oxygen, Suazo Catheter ROM/Strength ROM Lower Extremities bilateral LE WFL Strength Lower Extremities left LE 4/5 grossly/ right LE 3/5 grossly Integumentary/Posture Integumentary refer to nursing notes Bladder Incontinence: Suazo Cath Posture WFL Neuromuscular (Tone, Coordination, Reflexes) grossly intact Sensory Vision: Functional Hearing: Functional Sensation Right Lower Extremit: Intact Sensation Left Lower Extremity: Intact Transfers Therapy Code Descriptions/Definitions Functional [place] Measure: 0=Not Assessed/NA 4=Minimal Assistance 1=Total Assistance 5=Supervision or Setup 2=Maximal Assistance 6=Modified [place] 3=Moderate Assistance 7=Complete [place] Transfers (B, C, W/C) (FIM): 4 Scootin Rollin Supine to/from Sit: 4 Sit to/from Stand: 4 Gait Mode of Locomotion: Walk Anticipated Mode of Locomotion: Walk Gait (FIM): 2 Distance (FIM): 7=073-58 ft Distance: 100' Gait Level of Assist: 5 Gait Persons Needed: 1 Gait Assistive Device: FWW Comments/Gait Description slow, steady, antalgic Balance Sitting Static: Normal Sitting Dynamic: Normal Standing Static: Normal Standing Dynamic: Normal Assessment/Needs 62 y.o. female, will benefit from skilled PT to address functional strength and mobility to improve current LOF and to safely return to home at maximum LOF. Rehab Potential: Good PT Brass Cleaner Goals Mcfp Goals PT Brass Cleaner Goals Time Frame: Sep 13, 2018 Transfers (B,C,W/C) (FIM): 6 Gait (FIM): 6 Gait distance (FIM): 3=150 ft Distance: 250' Gait Level of Assist: 6 Gait Assistive Device: FWW Stairs (FIM): 5 # of Steps: 12 Stairs Level Of Assist: 5 PT Plan Problem List Problem List: Gait, Bed Mobility Treatment/Plan Treatment Plan: Continue Plan of Care Treatment Plan: Bed Mobility, Education, Functional Activity Samantha, Functional Strength, Gait, Safety, Therapeutic Exercise, Transfers Treatment Duration: Sep 13, 2018 Frequency: 11 times per week Estimated Hrs Per Day: .5 hour per day Patient and/or Family Agrees t: Yes Discharge Recommendations Therapy D/C Recommendations: Home w/ Family Support, Shelter (TCU/NH) Time/GCodes Time In: 825 Time Out: 838 Total Billed Treatment Time: 13 Total Billed Treatment 1 visit EVModC 13 min ALYCE VALENTIN PT Sep 01, 2018 10:26
--- NOTE | 2018-09-01 10:59 | Anesthesia-General Post-Op ---
General Patient Condition Mental Status/LOC: Same as Preop Cardiovascular: Satisfactory Nausea/Vomiting: Absent Respiratory: Satisfactory Pain: Controlled Complications: Absent Post Op Complications Complications None Follow Up Care/Instructions Patient Instructions None needed. Anesthesia/Patient Condition Patient Condition Patient is doing well, no complaints, stable vital signs, no apparent adverse anesthesia problems. No complications reported per nursing. PAT CARRIZALES CRNA Sep 01, 2018 10:59
--- NOTE | 2018-09-01 11:20 | Progress Note-Hospitalist ---
Subjective HPI/CC On Admission Date Seen by Provider: Sep 01, 2018 Time Seen by Provider: 11:14 This is a 62-year-old white female who was at the [facility] last evening with her . He had had a sonic burger earlier in the evening but then thinks perhaps her blood sugar dropped low. She got up to go get some drinks and then passed out falling on her right hip. She has sustained a right femoral neck fracture. Subjective/Events-last exam Pt reports doing well. Minimal pain. Currently on oxygen. Discussed options for post hospital care and she declined anywhere but rehab at home including ARU and SNF. Objective Exam Vital Signs Vital Signs Date Time Temp Pulse Resp B/P (MAP) Pulse Ox O2 Delivery O2 Flow Rate FiO2 09/01/18 13:02 89 09/01/18 12:00 99.7 18 100/55 (70) 97 Nasal Cannula 1.00 08/31/18 04:27 28 Capillary Refill : Less Than 3 SecondsLess Than 3 Seconds General Appearance: No Apparent Distress HEENT: Other (Edentulous) Respiratory: Lungs Clear, No Accessory Muscle Use, No Respiratory Distress Cardiovascular: Regular Rate, Rhythm, No Murmur Gastrointestinal: Normal Bowel Sounds, Non Tender, Soft Genital/Rectal: Other (benito in place) Extremity: No Calf Tenderness, No Pedal Edema, Swelling Neurologic/Psychiatric: Alert, Oriented x3 Skin: Normal Color, Warm/Dry Results/Procedures Lab Laboratory Tests 09/01/18 05:44 Patient resulted labs reviewed. Imaging: Reviewed Imaging Report Assessment/Plan Assessment and Plan Assess & Plan/Chief Complaint Right femoral neck fracture- POD #1, ortho consulted, appreciate recs- PT/OT consulted Hypothyroidism- Continue home supplement Tobaccoism with probable COPD- not on oxygen at home Granuloma left lung base- will need outpatient follow up Discharge planning- IRU consulted but patient declines any inpatient stay for rehab and only agreeable to returning home with outpatient PT/OT or Home Health through local hospital in [facility] consulted, appreciate recs Clinical Quality Measures DVT/VTE Risk/Contraindication: Risk Factor Score Per Nursin RFS Level Per Nursing on Admit: 4+=Very High DB WISDOM MD Sep 01, 2018 11:20
[2018-09-01 12:00] VITALS: BP 100/55
--- NOTE | 2018-09-01 12:32 | NUR ---
Suazo catheter d/c'd and patient tolerated well. Dressing dry and intact to left hip. Ice pack to incision and call light within reach.
--- NOTE | 2018-09-01 14:51 | Physical Therapy Daily Note ---
PT Daily Note-Current Subjective Patient is very agreeable to participate with PT. Pain Numeric Pain Scale: 5-Moderate Pain Location: Right Location Body Site: Hip Pain Description: Acute Mental Status Patient Orientation: Normal For Age Attachments: Oxygen, IV Transfers Therapy Code Descriptions/Definitions Functional [place] Measure: 0=Not Assessed/NA 4=Minimal Assistance 1=Total Assistance 5=Supervision or Setup 2=Maximal Assistance 6=Modified [place] 3=Moderate Assistance 7=Complete [place] Therapy Quality Codes: 6 Independent with activity with or without an assistive device 5 Patient requires set up or clean up by helper. Patient completes activity by themselves 4 Supervision or touching assist (CGA). [place] provide cues , steadying assist 3 The helper provides less than half the effort to complete the activity 2 The helper provides more than half the effort to complete the activity 1 Dependent. The helper does all the effort to complete an activity 7 Patient refused to complete or attempt activity 9 The patient did not perform the activity before the current illness or injury 88 Not attempted due to Medical conditions or safety concerns Transfers (B, C, W/C) (FIM): 5 Scootin Rollin Supine to/from Sit: 5 Sit to/from Stand: 5 Weight Bearing Right Lower Extremity: Right Full Weight Bearing Left Lower Extremity: Left Full Weight Bearing Gait Training Gait (FIM): 5 Distance (FIM): 3=150 ft Distance: 150' Gait Level of Assist: 5 Gait Assistive Device: FWW reciprocal pattern/slightly antalgic Exercises Supine Ex: Ankle pumps, Quad Set, Heel Slides Supine Reps: 15 Seated Therapy Exercises: Ankle pumps, Long arc quads Seated Reps: 15 Assessment Patient progressing with treatment plan and plans dismissal to home with spouse and outpatient PT. Patient tolerated treatment well. PT Fdc Goals Fdc Goals PT Cbx Operator Goals Time Frame: Sep 13, 2018 Transfers (B,C,W/C) (FIM): 6 Gait (FIM): 6 Gait distance (FIM): 3=150 ft Distance: 250' Gait Level of Assist: 6 Gait Assistive Device: FWW Stairs (FIM): 5 # of Steps: 12 Stairs Level Of Assist: 5 PT Plan Treatment/Plan Treatment Plan: Continue Plan of Care Treatment Plan: Bed Mobility, Education, Functional Activity Samantha, Functional Strength, Gait, Safety, Therapeutic Exercise, Transfers Treatment Duration: Sep 13, 2018 Frequency: 11 times per week Estimated Hrs Per Day: .5 hour per day Patient and/or Family Agrees t: Yes Time/GCodes Time In: 1315 Time Out: 1338 Total Billed Treatment Time: 23 Total Billed Treatment 1 visit EX 10 min GT 13 min ALYCE VALENTIN PT Sep 01, 2018 14:51
[2018-09-01 15:25] VITALS: BP 106/52
[2018-09-01 19:26] VITALS: BP 90/55
[2018-09-01 20:21] VITALS: BP 122/60
[2018-09-02] VITALS (8 sets, daily range): BP systolic 102–119; BP diastolic 53–71
[2018-09-02] MEDS: ACETAMINOPHEN 325 MG TABLET PO PRN ×2 (00:14→07:27)
[2018-09-02] MEDS: RT-ALBUTEROL/IPRATROPIUM 3 ML (DUONEB) VIAL INH SCH ×4 (03:19→21:08)
[2018-09-02] MEDS: LEVOTHYROXINE 100 MCG (LEVOTHROID) TAB PO SCH (05:27)
--- NOTE | 2018-09-02 06:27 | Progress Note (SOAP) ---
Subjective Time Seen by a Provider: 06:26 Subjective/Events-last exam Pt states that she is doing good and doesn't have much pain. She has been up and about without much difficulty. She did spike a temp last night, but responded to tylenol. Objective Exam Vital Signs Date Time Temp Pulse Resp B/P (MAP) Pulse Ox O2 Delivery O2 Flow Rate FiO2 09/02/18 04:00 98.6 98 18 116/60 (78) 96 Nasal Cannula 3.00 09/02/18 03:19 95 Nasal Cannula 3.00 09/02/18 02:28 99.4 97 18 114/65 (81) 94 Nasal Cannula 3.00 09/02/18 01:15 100.6 104 18 104/63 (77) 95 2.00 09/02/18 01:00 104 09/02/18 00:15 101.6 105 16 111/53 (72) 98 Nasal Cannula 2.00 09/01/18 20:40 100.6 09/01/18 20:21 122/60 (80) 09/01/18 20:00 Room Air 09/01/18 19:26 97.8 102 18 90/55 (67) 90 Room Air 09/01/18 19:07 88 Room Air 09/01/18 19:00 102 09/01/18 16:09 92 Nasal Cannula 1.00 09/01/18 15:25 99.5 96 18 106/52 (70) 98 Nasal Cannula 2.00 09/01/18 13:02 89 09/01/18 12:00 99.7 91 18 100/55 (70) 97 Nasal Cannula 1.00 09/01/18 10:20 92 Nasal Cannula 2.00 09/01/18 08:00 99.5 94 18 112/71 (85) 95 Nasal Cannula 2.00 09/01/18 08:00 94 Room Air 2.00 09/01/18 07:02 75 I & O 09/02/18 07:00 Intake Total 3530 ml Output Total 2450 ml Balance 1080 ml Capillary Refill : Less Than 3 SecondsLess Than 3 Seconds General Appearance: No Apparent Distress, WD/WN Respiratory: No Respiratory Distress Extremity: No Calf Tenderness Neurologic/Psychiatric: No Motor/Sensory Deficits Results Lab Laboratory Tests 09/01/18 15:27: Glucometer 128H 09/02/18 05:24: Glucometer 109 Microbiology 08/31/18 MRSA Screen - Final, Complete MRSA not isolated Assessment/Plan Assessment/Plan Assess & Plan/Chief Complaint Right closed, displaced femoral neck fracture. S/P Right Hip Rajat-Arthroplasty Continue PT and work on placement Continue to work on IS Stable from Ortho standpoint, okay to transfer when ready Clinical Quality Measures DVT/VTE Risk/Contraindication: Risk Factor Score Per Nursin RFS Level Per Nursing on Admit: 4+=Very High FRANCO YATES Sep 02, 2018 06:27
[2018-09-02] MEDS ORDERED: ACETAMINOPHEN 325 MG TABLET PO PRN (08:00)
[2018-09-02] MEDS: DOCUSATE SODIUM 100 MG (COLACE) CAP PO SCH (08:56)
[2018-09-02] MEDS: SENNOSIDES 8.6 MG (SENOKOT) TAB PO SCH ×2 (08:56→19:36)
[2018-09-02] MEDS: oxyCODONE/APAP 7.5-325 MG (PERCOCET 7.5) TABLET PO PRN (08:56)
[2018-09-02] MEDS: NICOTINE 7 MG (NICODERM) PATCH TD SCH (08:59)
--- NOTE | 2018-09-02 09:42 | Physical Therapy Daily Note ---
PT Daily Note-Current Subjective Patient agrees to PT. Pain Numeric Pain Scale: 7 Location: Right Location Body Site: Hip Pain Description: Acute Mental Status Patient Orientation: Normal For Age Transfers Therapy Code Descriptions/Definitions Functional [place] Measure: 0=Not Assessed/NA 4=Minimal Assistance 1=Total Assistance 5=Supervision or Setup 2=Maximal Assistance 6=Modified [place] 3=Moderate Assistance 7=Complete [place] Therapy Quality Codes: 6 Independent with activity with or without an assistive device 5 Patient requires set up or clean up by helper. Patient completes activity by themselves 4 Supervision or touching assist (CGA). [place] provide cues , steadying assist 3 The helper provides less than half the effort to complete the activity 2 The helper provides more than half the effort to complete the activity 1 Dependent. The helper does all the effort to complete an activity 7 Patient refused to complete or attempt activity 9 The patient did not perform the activity before the current illness or injury 88 Not attempted due to Medical conditions or safety concerns Transfers (B, C, W/C) (FIM): 5 Scootin Supine to/from Sit: 5 Sit to/from Stand: 5 Weight Bearing Right Lower Extremity: Right Full Weight Bearing Left Lower Extremity: Left Full Weight Bearing Gait Training Gait (FIM): 5 Distance (FIM): 3=150 ft Distance: 175' Gait Level of Assist: 5 Gait Assistive Device: FWW very slow, step to gait sequence Exercises Supine Ex: Ankle pumps, Quad Set, Heel Slides Supine Reps: 15 Seated Therapy Exercises: Long arc quads Seated Reps: 15 Assessment Patient is progressing with treatment plan and will dismiss to home tomorrow with family. PT Care Manager Cna Goals Care Manager Cna Goals PT Correction Goals Time Frame: Sep 13, 2018 Transfers (B,C,W/C) (FIM): 6 Gait (FIM): 6 Gait distance (FIM): 3=150 ft Distance: 250' Gait Level of Assist: 6 Gait Assistive Device: FWW Stairs (FIM): 5 # of Steps: 12 Stairs Level Of Assist: 5 PT Plan Treatment/Plan Treatment Plan: Continue Plan of Care Treatment Plan: Bed Mobility, Education, Functional Activity Samantha, Functional Strength, Gait, Safety, Therapeutic Exercise, Transfers Treatment Duration: Sep 13, 2018 Frequency: 11 times per week Estimated Hrs Per Day: .5 hour per day Patient and/or Family Agrees t: Yes Time/GCodes Time In: 800 Time Out: 825 Total Billed Treatment Time: 25 Total Billed Treatment 1 visit EX 10 min GT 15 min ALYCE VALENTIN PT Sep 02, 2018 09:42
[2018-09-02] MEDS ORDERED: HYDROcodone/APAP 5 MG/325 MG (LORTAB) TAB PO PRN (09:45)
--- NOTE | 2018-09-02 09:45 | Progress Note-Hospitalist ---
Subjective HPI/CC On Admission Date Seen by Provider: Sep 02, 2018 Time Seen by Provider: 09:43 This is a 62-year-old white female who was at the [facility] last evening with her . He had had a sonic burger earlier in the evening but then thinks perhaps her blood sugar dropped low. She got up to go get some drinks and then passed out falling on her right hip. She has sustained a right femoral neck fracture. Subjective/Events-last exam Pt reports doing well. Working well with therapy. No other complaints. Would like to DC with outpatient therapy. About to take a shower. Objective Exam Vital Signs Vital Signs Date Time Temp Pulse Resp B/P (MAP) Pulse Ox O2 Delivery O2 Flow Rate FiO2 09/02/18 12:55 103 09/02/18 11:37 98.9 18 106/53 (70) 99 Nasal Cannula 2.00 08/31/18 04:27 28 Capillary Refill : Less Than 3 SecondsLess Than 3 Seconds General Appearance: No Apparent Distress, WD/WN HEENT: Other (Edentulous) Respiratory: Lungs Clear, No Respiratory Distress Cardiovascular: Regular Rate, Rhythm, No Murmur Gastrointestinal: Normal Bowel Sounds, Non Tender, Soft Genital/Rectal: Other (benito in place) Extremity: No Calf Tenderness, No Pedal Edema Neurologic/Psychiatric: Alert, Oriented x3 Results/Procedures Lab Patient resulted labs reviewed. Imaging: Reviewed Imaging Report Assessment/Plan Assessment and Plan Assess & Plan/Chief Complaint Right femoral neck fracture- POD #2, ortho consulted, appreciate recs- PT/OT consulted- will need continued rehab tomorrow Hypothyroidism- Continue home supplement Tobaccoism with probable COPD- not on oxygen at home Granuloma left lung base- will need outpatient follow up Discharge planning- IRU consulted but patient declines any inpatient stay for rehab and only agreeable to returning home with outpatient PT/OT or Home Health through local hospital in [facility] Insulation Supervisor consulted, appreciate recs Diagnosis/Problems Diagnosis/Problems (1) Closed right hip fracture Status: Acute Qualifiers: Encounter type: initial encounter Qualified Codes: S72.001A - Fracture of unspecified part of neck of right femur, initial encounter for closed fracture (2) Syncopal episodes Status: Acute Qualifiers: Syncope type: unspecified Qualified Codes: R55 - Syncope and collapse (3) Hypothyroid Status: Chronic Qualifiers: Hypothyroidism type: unspecified Qualified Codes: E03.9 - Hypothyroidism, unspecified (4) Bronchitis due to tobacco use Status: Acute Clinical Quality Measures DVT/VTE Risk/Contraindication: Risk Factor Score Per Nursin RFS Level Per Nursing on Admit: 4+=Very High DB WISDOM MD Sep 02, 2018 09:45
--- NOTE | 2018-09-02 10:08 | NUR ---
SPO2 87% ON ROOM AIR @ REST. REPLACED O2 @ 2 LPM. SPO2 INCREASED TO 93%.
--- NOTE | 2018-09-02 11:35 | NUR ---
CM/SS spoke with the patient and her daughter for discharge planning. Patient will be returning to [facility] area. Will get FWW delivered from DME, information necessary was faxed to them and they will deliver to patient room. Will work to get outpatient PT and oxygen set up with [facility] in [place].
--- NOTE | 2018-09-02 12:05 | Physical Therapy Daily Note ---
PT Daily Note-Current Subjective Patient is very agreeable to participate with PT. Pain Numeric Pain Scale: 5-Moderate Pain Location: Right Location Body Site: Hip Pain Description: Acute Mental Status Patient Orientation: Normal For Age Attachments: Oxygen Transfers Therapy Code Descriptions/Definitions Functional [place] Measure: 0=Not Assessed/NA 4=Minimal Assistance 1=Total Assistance 5=Supervision or Setup 2=Maximal Assistance 6=Modified [place] 3=Moderate Assistance 7=Complete [place] Therapy Quality Codes: 6 Independent with activity with or without an assistive device 5 Patient requires set up or clean up by helper. Patient completes activity by themselves 4 Supervision or touching assist (CGA). [place] provide cues , steadying assist 3 The helper provides less than half the effort to complete the activity 2 The helper provides more than half the effort to complete the activity 1 Dependent. The helper does all the effort to complete an activity 7 Patient refused to complete or attempt activity 9 The patient did not perform the activity before the current illness or injury 88 Not attempted due to Medical conditions or safety concerns Transfers (B, C, W/C) (FIM): 5 Scootin Supine to/from Sit: 5 Sit to/from Stand: 5 Weight Bearing Right Lower Extremity: Right Full Weight Bearing Left Lower Extremity: Left Full Weight Bearing Gait Training Gait (FIM): 5 Distance (FIM): 3=150 ft Distance: 175' Gait Level of Assist: 5 Gait Assistive Device: FWW slow, antalgic gait sequence Assessment Patient will dismiss to home tomorrow with family. Patient is progressing with treatment. PT Retirement Goals [employer] Goals PT Retirement Goals Time Frame: Sep 13, 2018 Transfers (B,C,W/C) (FIM): 6 Gait (FIM): 6 Gait distance (FIM): 3=150 ft Distance: 250' Gait Level of Assist: 6 Gait Assistive Device: FWW Stairs (FIM): 5 # of Steps: 12 Stairs Level Of Assist: 5 PT Plan Treatment/Plan Treatment Plan: Continue Plan of Care Treatment Plan: Bed Mobility, Education, Functional Activity Samantha, Functional Strength, Gait, Safety, Therapeutic Exercise, Transfers Treatment Duration: Sep 13, 2018 Frequency: 11 times per week Estimated Hrs Per Day: .5 hour per day Patient and/or Family Agrees t: Yes Time/GCodes Time In: 1145 Time Out: 1157 Total Billed Treatment Time: 12 Total Billed Treatment 1 visit GT 12 min BARBIE,ALYCE PT Sep 02, 2018 12:05
--- NOTE | 2018-09-02 15:19 | NUR ---
CM/SS spoke with and sent information for oxygen set up with [facility]. They will not set up portable. Then spoke with [facility] to see about arranging portable oxygen to get the patient back to her home area, they were provided with contact information and will contact them to see if they will send portable tank back. [facility] will get back to this journalists and other writers if they can do the portable. If they are unable to then may have to reconsider provider for oxygen to a provider that is more national.
[2018-09-03 00:53] VITALS: BP 131/62
[2018-09-03] MEDS: RT-ALBUTEROL/IPRATROPIUM 3 ML (DUONEB) VIAL INH SCH ×2 (03:01→09:37)
[2018-09-03 04:04] VITALS: BP 115/58
[2018-09-03] MEDS: LEVOTHYROXINE 100 MCG (LEVOTHROID) TAB PO SCH (05:58)
[2018-09-03] MEDS: oxyCODONE/APAP 7.5-325 MG (PERCOCET 7.5) TABLET PO PRN ×2 (06:04→12:04)
[2018-09-03 07:29] VITALS: BP 102/50
[2018-09-03] MEDS: NICOTINE 7 MG (NICODERM) PATCH TD SCH (07:59)
[2018-09-03] MEDS: SENNOSIDES 8.6 MG (SENOKOT) TAB PO SCH (07:59)
[2018-09-03] MEDS ORDERED: [UNRECOGNIZED DRUG - OTHER] (08:40)
[2018-09-03] MEDS ORDERED: OXYC1TAB16 PO (08:40)
--- NOTE | 2018-09-03 08:44 | Discharge Inst-Simple/Standard ---
Discharge Inst-Standard Discharge Medications New, Converted or Re-Newed RX: RX on Chart Patient Instructions/Follow Up Plan of Care/Instructions/FU: Please continue to take your medications as written. Please follow up with your PCP and with your orthopedic surgeon in town. Activity as Tolerated: Yes Discharge Diet: No Restrictions Return to The Hospital For: Worsening pain, drainage from incision, fevers, if you feel you are getting worse. DB WISDOM MD Sep 03, 2018 08:44
--- NOTE | 2018-09-03 08:49 | Discharge Summary-Hospitalist ---
Diagnosis/Chief Complaint Date of Admission Aug 31, 2018 at 01:00 Date of Discharge Discharge Date: Sep 03, 2018 Admission Diagnosis Right femoral neck fracture Hypothyroidism Tobaccoism with probable COPD Syncope we will place on telemetry possibly hypoglycemia granuloma left lung base possibly warranting a follow-up as an outpatient Insomnia takes an exit bedtime to help her sleep Discharge Diagnosis (1) Closed right hip fracture Status: Acute (2) Syncopal episodes Status: Acute (3) Hypothyroid Status: Chronic (4) Bronchitis due to tobacco use Status: Acute Discharge Summary Discharge Physical Exam Allergies: Coded Allergies: erythromycin base (Verified Allergy, Unknown, 08/30/18) hydrocodone (Verified Allergy, Unknown, Nausea (even with food), 09/02/18) Patient can take Oxycodone, higher doses make her loopy Vitals & I&Os Vital Signs Date Time Temp Pulse Resp B/P (MAP) Pulse Ox O2 Delivery O2 Flow Rate FiO2 09/03/18 07:29 99.3 102 18 102/50 (67) 98 Nasal Cannula 2.00 08/31/18 04:27 28 General Appearance: No Apparent Distress, WD/WN HEENT: Other (Edentulous) Respiratory: Lungs Clear, No Respiratory Distress Cardiovascular: Regular Rate, Rhythm, No Murmur Gastrointestinal: Normal Bowel Sounds, Non Tender, Soft Extremity: No Calf Tenderness, No Pedal Edema Neurologic/Psychiatric: Alert, Oriented x3 Hospital Course Labs (last 24 hrs) Laboratory Tests 09/02/18 15:27: Glucometer 131H 09/03/18 05:56: Glucometer 125H Microbiology 08/31/18 MRSA Screen - Final, Complete MRSA not isolated Patient resulted labs reviewed. Pending Labs Laboratory Tests 09/03/18 05:56: Glucometer 125 Imaging: Reviewed Imaging Report Discharge Home Medications: Active Scripts Active Percocet 7.5-325 mg Tablet (Oxycodone HCl/Acetaminophen) 1 Each Tablet 0.5-1 Each PO Q4H PRN [toilet riser] Reported Omeprazole 40 Mg Capsule.dr 40 Mg PO DAILY PRN Xanax (Alprazolam) 0.25 Mg Tablet 0.25 Mg PO HS Levothyroxine Sodium 100 Mcg Tablet 100 Mcg PO DAILY Aspirin EC (Aspirin) 81 Mg Tablet.dr 81 Mg PO HS Instructions to patient/family Please see electronic discharge instructions given to patient. Clinical Quality Measures DVT/VTE Risk/Contraindication: Risk Factor Score Per Nursin RFS Level Per Nursing on Admit: 4+=Very High Problem Qualifiers (1) Closed right hip fracture: Encounter type: initial encounter Qualified Codes: S72.001A - Fracture of unspecified part of neck of right femur, initial encounter for closed fracture (2) Syncopal episodes: Syncope type: unspecified Qualified Codes: R55 - Syncope and collapse (3) Hypothyroid: Hypothyroidism type: unspecified Qualified Codes: E03.9 - Hypothyroidism, unspecified DB WISDOM MD Sep 03, 2018 08:49
--- NOTE | 2018-09-03 08:57 | NUR ---
CM/SS spoke with and sent information by fax to [facility] in [facility] for set up of outpatient PT. They will contact the patient to schedule. [facility] was contacted as a provider for [employer] oxygen, they were in meeting and got their answering service, will call later this day to try and arrange the patient's oxygen.
--- NOTE | 2018-09-03 10:14 | NUR ---
CM/SS spoke with [facility] and they referred this internal communications writer to [facility] for the oxygen need. [facility] was faxed all information for the oxygen set up and they will contact [employer] supplier for delivery of portable to the hospital this day. Spoke with and updated patient on oxygen and PT set up.
[2018-09-03 11:49] VITALS: BP 115/50
--- NOTE | 2018-09-03 11:55 | Physical Therapy Daily Note ---
PT Daily Note-Current Subjective Pt in recliner with daughter in room and agrees to PT. Reports she has already been up and walking and has taken a shower. They are just waiting on oxygen for her to be dismissed. Pain Numeric Pain Scale: 5-Moderate Pain Location: Right Location Body Site: Hip Mental Status Patient Orientation: Person, Place, Situation, Normal For Age Attachments: Oxygen (2.5L) Transfers Therapy Code Descriptions/Definitions Functional [place] Measure: 0=Not Assessed/NA 4=Minimal Assistance 1=Total Assistance 5=Supervision or Setup 2=Maximal Assistance 6=Modified [place] 3=Moderate Assistance 7=Complete [place] Therapy Quality Codes: 6 Independent with activity with or without an assistive device 5 Patient requires set up or clean up by helper. Patient completes activity by themselves 4 Supervision or touching assist (CGA). [place] provide cues , steadying assist 3 The helper provides less than half the effort to complete the activity 2 The helper provides more than half the effort to complete the activity 1 Dependent. The helper does all the effort to complete an activity 7 Patient refused to complete or attempt activity 9 The patient did not perform the activity before the current illness or injury 88 Not attempted due to Medical conditions or safety concerns Transfers (B, C, W/C) (FIM): 5 Sit to/from Stand: 5 Weight Bearing Right Lower Extremity: Right Full Weight Bearing Left Lower Extremity: Left Full Weight Bearing Gait Training Gait (FIM): 5 Distance (FIM): 3=150 ft Distance: 150' Gait Level of Assist: 5 Gait Persons Needed: 1 Gait Assistive Device: FWW Pt amb with step to pattern, antalgic gait. Exercises Seated Therapy Exercises: Ankle pumps, Long arc quads Seated Reps: 15 Assessment Current Status: Good Progress Pt is able to transfer from recliner to FWW with SBA and performs with good safety. Pt able to amb with FWW 150' SBA on 2.5L O2. Pt reports that her proximal quad still gets tight and knots up, but ice is able to relieve the tension. Pt returned to recliner and was able to perform LE seated ex. Pt does a good job about keep RLE in sagittal plane with no rotation during transfers or amb. Pt has all needs met and is in recliner with daughter in room. PT Assisted Goals Assisted Goals PT [place] Instructor Goals Time Frame: Sep 13, 2018 Transfers (B,C,W/C) (FIM): 6 Gait (FIM): 6 Gait distance (FIM): 3=150 ft Distance: 250' Gait Level of Assist: 6 Gait Assistive Device: FWW Stairs (FIM): 5 # of Steps: 12 Stairs Level Of Assist: 5 PT Plan Problem List Problem List: Activity Tolerance, Functional Strength, Safety, Balance, Gait, Transfer, Bed Mobility, ROM Treatment/Plan Treatment Plan: Discontinue PT Treatment Plan: Bed Mobility, Education, Functional Activity Samantha, Functional Strength, Gait, Safety, Therapeutic Exercise, Transfers Treatment Duration: Sep 13, 2018 Frequency: 11 times per week Estimated Hrs Per Day: .5 hour per day Patient and/or Family Agrees t: Yes Safety Risks/Education Patient Education: Gait Training, Transfer Techniques, Correct Positioning, Safety Issues Teaching Recipient: Patient Teaching Methods: Demonstration, Discussion Response to Teaching: Reinforcement Needed Time/GCodes Time In: 1123 Time Out: 1146 Total Billed Treatment Time: 23 Total Billed Treatment 1 visit GT 13 min EX 10 min VITO FRIEDMAN PT Sep 03, 2018 11:55
== END 2018-09-03 12:45 | disposition home or self-care (01) | DRG 470 ==
LOC: ER 21:59 → 4TH 08-31 01:00
PROVIDERS: ADMIT Internal Medicine; ATTEND Internal Medicine
PROC: 0SRT0JA Replacement of Right Knee Joint, Femoral Surface with Synthetic Substitute, Uncemented, Open Approach (ICD-10-PCS; principal; 2018-08-31 10:57)
DX: S72.001A Fracture of unspecified part of neck of right femur, initial encounter for closed fracture (principal); J44.0 Chronic obstructive pulmonary disease with (acute) lower respiratory infection; J20.9 Acute bronchitis, unspecified; F17.218 Nicotine dependence, cigarettes, with other nicotine-induced disorders; E03.9 Hypothyroidism, unspecified; K21.9 Gastro-esophageal reflux disease without esophagitis; F41.9 Anxiety disorder, unspecified; R55 Syncope and collapse; G47.00 Insomnia, unspecified; J84.10 Pulmonary fibrosis, unspecified; W01.198A Fall on same level from slipping, tripping and stumbling with subsequent striking against other object, initial encounter; Y92.59 Other trade areas as the place of occurrence of the external cause; Y93.89 Activity, other specified
CPT/HCPCS: 36415; 36600; 51702; 70450; 71045; 72125; 73502; 80048; 80053; 80306; 80320; 81000; 82140; 82805; 82962; 83036; 83880; 84443; 84484; 85025; 85652; 86141; 87081; 87804; 93005; 94640; 94664; 94760